=== PATIENT | male | born 1945 | race Caucasian/White ===

== ENCOUNTER 2019-07-19 23:56 | Emergency (ER) | payer MEDICARE ==
[~2019-07-19] VITALS: Ht 182.9 cm; Wt 70.0 kg
[2019-07-20] MEDS ORDERED: normal saline 1000ml 1,000 ML IV ONE (00:15)
[2019-07-20] MEDS ORDERED: normal saline 1000ML IV soln IVB ONE (00:15)
[2019-07-20] MEDS ORDERED: iohexol 300mg/ml 100ml inj. ONE (00:27)
--- NOTE | 2019-07-20 00:51 | NUR ---
labs drawn, 2 liters ns bolus currently infusing, pt with stable vs. stood at bedside with sba to attempt to void and unable. Pt refuses a straight cath. cxr completed, taken to ct now.
--- NOTE | 2019-07-20 00:56 | NUR ---
DR. PARIS AT BEDSIDE TO TALK WITH PT ABOUT WHY HE IS REFUSING THE CT CONTRAST. PT REPORTS A BAD REACTION IN THE PAST, DOES NOT RECALL WHY HE HAD THE STUDY BUT STATES IT WAS BAD AND HE WILL NOT HAVE IT AGAIN. STATES 6 OUT OF 10 PAIN TO HIS BACK.
[2019-07-20 01:01] LABS: BASOPHILS # (AUTO) 0.1 X10'3 (0-0.2); BASOPHILS % (AUTO) 0.9 % (0-1); EOSINOPHILS # (AUTO) 0.1 X10'3 (0-0.9); EOSINOPHILS % (AUTO) 1.5 % (0-6); HEMATOCRIT 36.8 % (42.0-52.0); HEMOGLOBIN 11.9 g/dl (14.0-17.9); LYMPHOCYTES # (AUTO) 0.3 X10'3 (1.1-4.8); LYMPHOCYTES % (AUTO) 6.3 % (21-51); MEAN CORPUSCULAR HEMOGLOBIN 29.5 PG (27.0-31.0); MEAN CORPUSCULAR HGB CONC 32.3 g/dL (33.0-36.5); MEAN CORPUSCULAR VOLUME 91.1 FL (78-98); MEAN PLATELET VOLUME 7.8 FL (7.4-10.4); MONOCYTES # (AUTO) 0.4 X10'3 (0-0.9); NEUTROPHILS # (AUTO) 4.7 X10'3 (1.8-7.7); NEUTROPHILS % (AUTO) 84.3 % (42-75); PLATELET COUNT 184 X10'3 (140-440); RED BLOOD COUNT 4.04 X10'6 (4.70-6.10); RED CELL DISTRIBUTION WIDTH 21.6 % (11.5-14.5); WHITE BLOOD COUNT 5.5 X10'3 (4.5-11.0)
[2019-07-20 01:07] LABS: ALANINE AMINOTRANSFERASE 9 U/L (12-78); ALBUMIN 2.6 G/DL (3.4-5.0); ALBUMIN/GLOBULIN RATIO 0.8 (1.1-1.5); ALKALINE PHOSPHATASE 105 IU/L (46-116); ANION GAP 8 (8-16); ASPARTATE AMINO TRANSFERASE 22 U/L (10-37); BILIRUBIN,TOTAL 0.4 MG/DL (0.1-1.0); BLOOD UREA NITROGEN 20 MG/DL (7-18); BUN/CREATININE RATIO 8.4 (5.4-32.0); CALCIUM 8.3 MG/DL (8.5-10.1); CHLORIDE 103 MMOL/L (99-107); CREATININE 2.39 MG/DL (0.60-1.10); ETHANOL < 0.010 GM/DL (0.0-0.010); GLUCOSE 101 MG/DL (70-104); LIPASE 64 U/L (73-393); MAGNESIUM 2.2 MG/DL (1.5-2.4); POTASSIUM 3.5 MMOL/L (3.5-5.1); SODIUM 138 MMOL/L (135-145); TOTAL CARBON DIOXIDE 27.1 MMOL/L (24-32); TOTAL PROTEIN 5.9 G/DL (6.4-8.2); eGFR 27 ML/MIN
--- NOTE | 2019-07-20 01:37 | NUR ---
PT WENT TO CT WITH O2 SAT 98&% ON ROOM AIR WHEN HE LEFT. UPON RETURN FROM CT, PT O2 80% AND DENIED SOB, RR 20. AFTER RESTING FOR 1 MINUTE, O2 WENT BACK TO 96% ON ROOM AIR. EDKS CARROLL AWARE OF FINDINGS. NO NEW ORDERS AT THIS TIME.
--- NOTE | 2019-07-20 01:55 | NUR ---
pt had risks of discharge explained to him in clear context by MD Tran and pt had opportunity to ask questions. pt still desires to go home. He is advised that he can return at anytime should he change his mind. pt verbalized understanding that his condition could turn life threatening.
--- NOTE | 2019-07-20 01:55 | NUR ---
IN ROOM WITH AVI HODGES AND ED CHARGE NURSE SAMMY. AVI HODGES CLEARLY EXPLAINED THE RISKS (UP TO AND INCLUDING ) OF PT GOING HOME VS STAYING AND HAVING SURGERY FOR AAA DIAGNOSIS. PT CONTINUES TO REFUSE SURGERY AND REQUESTS TO DISCHARGE HOME. PT GIVEN TIME TO ASK QUESTIONS AND UNDERSTOOD ALL INSTRUCTIONS TO RETURN IF PT CHANGES HIS MIND.
[2019-07-20 01:56] LABS: PLATELET ESTIMATE NORMAL
[2019-07-20 01:58] LABS: ANISOCYTOSIS 2+; ELLIPTOCYTES 1+; POIKILOCYTOSIS FEW
[2019-07-20 03:28] VITALS: BP 138/113
== END 2019-07-20 03:27 | disposition home or self-care (01) ==
LOC: ER 23:58 → EDBD 23:58 → ER 07-20 03:27
DX: I71.4 Abdominal aortic aneurysm, without rupture (principal); R42 Dizziness and giddiness; Z88.0 Allergy status to penicillin; W18.30XA Fall on same level, unspecified, initial encounter; Y93.89 Activity, other specified; Y92.098 Other place in other non-institutional residence as the place of occurrence of the external cause; Y99.9 Unspecified external cause status
CPT/HCPCS: 36415; 70450; 71045; 71250; 74176; 80053; 80320; 82140; 83690; 83735; 85025; 85610; 93005; 96360; 96361; 99285; J7030; Q9967